=== PATIENT | female | born 2000 | race African-American/Black ===

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

== ENCOUNTER 2022-03-06 17:24 | Emergency (ER) | payer OTHER ==
[2022-03-06 17:36] VITALS: BP 110/73; RESP 18; TEMP 97.6; BMI 29.2
[2022-03-06 21:05] VITALS: PULSE 85
== END 2022-03-06 21:05 | disposition home or self-care (01) ==
LOC: JERFT 17:24
DX: R07.89 Other chest pain (principal)
CPT/HCPCS: 71046-TC-FY; 93005; 93010; 99284-25